=== PATIENT | female | born 1975 | race Caucasian/White ===

== ENCOUNTER 2018-01-03 11:04 | Emergency (ER) | END 2018-01-03 13:12 | disposition home or self-care (01) ==

== ENCOUNTER 2019-08-28 16:02 | Emergency (ER) | payer BC ==
[~2019-08-28] VITALS: Ht 154.9 cm; Wt 104.8 kg
[~2019-08-28 16:02] MED LIST: ACET325T33 PO; AMOX1TAB10 PO; NAPR-985 PO; PREN-39 PO; SULF1TAB31 PO
[2019-08-28 16:08] VITALS: BP 140/73; PULSE 66; RESP 16; Ht 154.9 cm; Wt 104.8 kg
== END 2019-08-28 17:52 | disposition home or self-care (01) ==
LOC: FTE 16:02
DX: H01.001 Unspecified blepharitis right upper eyelid (principal)
CPT/HCPCS: 81025; 99283